=== PATIENT | female | born 1990 | race Caucasian/White ===

== ENCOUNTER 2021-12-02 10:08 | Day surgery (SDC) | payer OTHER ==
--- NOTE | 2021-12-02 08:54 | P.GSHP ---
History of Present Illness H&P Date: 12/02/21 CHIEF COMPLAINT: Ventral hernia HISTORY OF PRESENT ILLNESS: The patient is a 31-year-old female presents with a history of swelling and pain along the abdomen from a hernia of the abdomen. Symptoms have been present for over 6 months. Now she presents for surgical intervention. PAST MEDICAL HISTORY: Please see list. PAST SURGICAL HISTORY: Please see list. MEDICATIONS: Please see list. ALLERGIES: Please see list. SOCIAL HISTORY: No illicit drug use FAMILY HISTORY: No reports of Crohn disease or ulcerative colitis. REVIEW OF ORGAN SYSTEMS: CONSTITUTIONAL: No reports of fevers or chills. No reports of weight loss despite prior attempts. GI: Denies any blood in stools or constipation. PHYSICAL EXAM: VITAL SIGNS: Stable GENERAL: Well-developed pleasant male in no acute distress. HEENT: No scleral icterus. Extraocular movements grossly intact. Moist buccal mucosa. NECK: Supple without lymphadenopathy. CHEST: Unlabored respirations. Equal bilateral excursions. CARDIOVASCULAR: Regular rate and rhythm. Distal 2+ pulses. ABDOMEN: Soft, nondistended. Palpable defect of the abdomen. No peritoneal signs. MUSCULOSKELETAL: No clubbing, cyanosis, or edema. ASSESSMENT: 1. Ventral hernia PLAN: 1. Recommend proceeding with robotic ventral hernia repair with mesh. 2. Benefits and risks of surgical intervention was discussed including possibility of open technique. 3. DVT prophylaxis. 4. Antibiotic prophylaxis. 5. Non narcotic pain management including abdominal wall block described 6. Blood sugar glucose described. 7. Weight loss management described. Past Medical History Past Medical History: Seizure Disorder Additional Past Medical History / Comment(s): epilepsy-last seizure 09-12-21 after grandma , smokes marijuana for her epilepsy, says works better for her than anti-seizure meds History of Any Multi-Drug Resistant Organisms: None Reported Past Surgical History: Hernia Repair, Tubal Ligation Past Anesthesia/Blood Transfusion Reactions: No Reported Reaction Smoking Status: Former smoker Medications and Allergies Home Medications Medication Instructions Recorded Confirmed Type Multivitamins, Thera [Multivitamin 1 tab PO DAILY 11/29/21 11/29/21 History (formulary)] Sertraline [Zoloft] 50 mg PO DAILY 11/29/21 11/29/21 History Allergies Allergy/AdvReac Type Severity Reaction Status Date / Time No Known Allergies Allergy Verified 11/29/21 14:29
[~2021-12-02 10:08] MED LIST: ACETAMINOPHEN TAB 500 MG TAB PO PRN; DEXAMETHASONE SOD PHOSPHATE 4 MG/ML 1 ML VIAL IV ONE; FAMOTIDINE 20 MG TAB PO PRN; HEPARIN SODIUM,PORCINE/PF 5,000 UNIT/0.5 ML SYRINGE SQ PRN; LACTATED RINGERS 1,000 ML IV SCH; LIDOCAINE 1% (10MG/ML) FOR IV START INTRADERMA PRN; MELOXICAM 7.5 MG TAB PO PRN; METOCLOPRAMIDE 5 MG/ML 2 ML VIAL IVP PRN; ONDANSETRON 4 MG/2 ML VIAL IVP ONE; SCOPOLAMINE 1 MG/72 HR PATCH TRANSDERM ONE; SCOPOLAMINE 1 MG/72 HR PATCH TRANSDERM PRN
[2021-12-02 11:01] LABS: Basophils % (A) 0 %; Eosinophils # (A) 0.2 k/uL (0-0.7); Eosinophils % (A) 3 %; HCT 41.8 % (34.0-46.0); HGB 13.2 gm/dL (11.4-16.0); Lymphocytes # (A) 1.4 k/uL (1.0-4.8); Lymphocytes % (A) 27 %; MCH 28.2 pg (25.0-35.0); MCHC 31.7 g/dL (31.0-37.0); MCV 88.9 fL (80.0-100.0); Monocytes # (A) 0.4 k/uL (0-1.0); Monocytes % (A) 7 %; Neutrophils % (A) 60 %; Platelet Count 164 k/uL (150-450); RDW 13.6 % (11.5-15.5)
[2021-12-02 11:18] LABS: ALT 14 U/L (4-34); AST 29 U/L (14-36); African American GFR (CKD) >90 (>60 ml/min/1.73 sqM); Albumin 4.6 g/dL (3.5-5.0); Alkaline Phosphatase 57 U/L (38-126); Anion Gap 6 mmol/L; Blood Urea Nitrogen 11 mg/dL (7-17); Calcium 9.3 mg/dL (8.4-10.2); Carbon Dioxide 23 mmol/L (22-30); Chloride 111 mmol/L (98-107); Glucose 97 mg/dL (74-99); Non-African American GFR(CKD) >90 (>60 ml/min/1.73 sqM); Potassium 4.1 mmol/L (3.5-5.1); Sodium 140 mmol/L (137-145); Total Bilirubin 0.9 mg/dL (0.2-1.3); Total Protein 7.6 g/dL (6.3-8.2)
[2021-12-02] MEDS ORDERED: MIDAZOLAM 2 MG/2 ML VIAL IV ONE (11:39)
[2021-12-02] MEDS ORDERED: fentaNYL (PF) 50 MCG/ML 2 ML AMP IV ONE (11:39)
--- NOTE | 2021-12-02 12:12 | P.ANPRN ---
Procedure Note - Anesthesia - Nerve Block Performed Bilateral Rectus Abdominis Time Out Performed: Yes (11:39) Date of Procedure: 12/02/21 Procedure Start Time: :39 Procedure Stop Time: 11:49 Location of Patient: PreOp Indication: Acute Post-Operative Pain, Requested by Surgeon (Dr Cordon) Sedation Type: Sedate with meaningful contact maintained Preparation: Sterile Prep Position: Supine Catheter: None Needle Types: Pajunk Needle Gauge: 21 Ultrasound used to visualize needle placement: Yes Ultrasound used to observe medication spread: Yes Injectate: 0.5% Ropivacaine (see comment for volume) (15cc +10cc PF Normal saline each side) Blood Aspirated: No Pain Paresthesia on Injection Noted: No Resistance on Injection: Normal Image Stored and Saved: Yes Events: Uneventful and Well Tolerated
[2021-12-02] MEDS ORDERED: ROCURONIUM 10 MG/ML (5 ML VIAL) IV ONE (12:29)
[2021-12-02] MEDS ORDERED: LIDOCAINE 2% INJ 20 MG/ML (2 ML VIAL) ONE (12:29)
[2021-12-02] MEDS ORDERED: KETOROLAC 15 MG/ML 1 ML VIAL ONE (12:29)
[2021-12-02] MEDS ORDERED: PROPOFOL 10 MG/ML 20 ML VIAL IV ONE (12:29)
[2021-12-02] MEDS ORDERED: SODIUM CHLORIDE 0.9% (PF) 10 ML VIAL ONE (12:29)
[2021-12-02] MEDS ORDERED: BUPIVACAIN-EPI 0.25%-1:200,000 30 ML VIAL SQ ONE (12:29)
[2021-12-02] MEDS ORDERED: MIDAZOLAM 2 MG/2 ML VIAL ONE (12:29)
[2021-12-02] MEDS ORDERED: HYDROmorphone (PF) 1 MG/ML ONE (12:29)
[2021-12-02] MEDS ORDERED: ROPIVACAINE 5 MG/ML 30 ML VIAL ONE (12:29)
[2021-12-02] MEDS ORDERED: fentaNYL (PF) 50 MCG/ML 2 ML AMP ONE (12:29)
[2021-12-02] MEDS ORDERED: KETOROLAC 15 MG/ML 1 ML VIAL IVP PRN (14:27)
[2021-12-02] MEDS ORDERED: oxyCODONE-APAP 7.5-325MG 1 EACH TAB PO PRN (14:27)
--- NOTE | 2021-12-02 14:35 | P.OP ---
Date of Procedure: 12/02/21 Description of Procedure: SURGEON: LUCÍA DOYLE MD PREOPERATIVE DIAGNOSES: 1. Recurrent incisional ventral hernia POSTOPERATIVE DIAGNOSES: 1. Recurrent incisional ventral hernia, 3 x 2 cm, reducible 2. Peritoneal adhesions 3. Foreign body, mass OPERATION: 1. Robotic-assisted da Delia Xi laparoscopic repair of recurrent incisional reducible ventral hernia with mesh, ventralight ST mesh 11.4 cm 2. Robotic-assisted da Delia Xi laparoscopic lysis of adhesions 3. Excision/removal of foreign body, mesh Anesthesia: GETA, regional, local Estimated Blood Loss (ml): 5 Pathology: 1. Umbilical incisional hernia defect 2. Ventral hernia mesh COMPLICATIONS: None. Operative Findings: 1. Recurrent umbilical ventral hernia defect 3 x 2 cm 2. Prior mesh repair with failure at the inferior aspect and residual subcutaneous pocket 5 x 4 cm lower abdomen 3. Fascia repaired using #1 V-lock suture 4. Omental adhesions to prior hernia mesh repair lysed and removed INDICATIONS: The patient is a 31-year-old male who presents with a personal history of recurrent abdominal wall hernia. Surgical intervention with laparoscopic versus robotic and open techniques were reviewed. Placement of mesh was also reviewed. Benefits and risks were thoroughly described. Informed consent was obtained. DESCRIPTION OF PROCEDURE: The patient was brought into the operating room and laid in supine position. After general induction, the abdomen had been prepped and draped in standard sterile fashion. Ioban draping was also placed. Prior to incision, a timeout protocol was confirmed with surgical team regarding the patient's name including procedures to be performed. The robot was primed prior to the procedure. A field block using local anesthetic was placed along hernia site including the proposed port sites. Initial incision was made with an #11 blade along the left upper quadrant. A 0 degree 5 mm laparoscopic trocar entry was performed and insufflated. Three 8 mm ports were placed along the left lateral abdominal wall under direct localization after exchanging the 5-mm for an 8 mm port. Placements of the ports were 15 cm from the target anatomy and 10 cm apart. An accessory 12 mm port was placed at the left upper quadrant for exchange of mesh including sutures. The Guardlyi Xi robot was previously primed, prepped and draped then docked from the right side of the patient onto the left side of the patient. I then sat at the robot [employer] Xi console where working arms of the robot including Bovie cautery connected to robotic scissors, needle truck driver teamster, and graspers placed by the retail loan originator assistant. Omental with mesh adhesions were found at the prior umbilical hernia repair. Failure found along the inferior aspect. Mesh found was 3-4 cm circular mesh and explanted. New incisional hernia defect found of 3 x 2 cm with large subcutaneous pocket 5 x 4 cm inferiorly. Adhesions were sharply lysed using vessel sealer. The defect contents were reduced as the peritoneal fat was cleaned from the abdominal wall. Next, hemostasis was checked with cautery. The hernia defects were oversewn using #1 nonabsorbable V-lock suture for each defect separately with fascial imbrication x 2. Next, ventralight ST mesh 11.4 cm was placed with the rough side towards the abdominal wall as to cover the ventral defect. 2-0 VLOC 9 inch non-absorbable sutures were used to fixate the mesh. A final endoscopic imaging was obtained. All instruments and pneumoperitoneum were evacuated from the abdominal cavity. The da Delia Xi robot was undocked from the patient. I re-scrubbed into the case for closure of incisions. The fascia of the 12-mm port was closed using Juan Liang 0 Vicryl . The incisions were reapproximated using 4-0 Monocryl in an interrupted subcuticular fashion. Liquid glue was applied to the skin after cleansing the skin with normal saline and dilute hydrogen peroxide. An abdominal binder was placed. An umbilical dressing was placed prior. At the end of the procedure, needle, sponge, and instrument count had been verified correct by surgical instrument repair specialist. The patient was taken to the postanesthesia care unit in stable condition. Plan - Discharge Summary Discharge Rx Participant: No New Discharge Prescriptions: New Simethicone [Gas-X] 125 mg PO AC-TID PRN #20 capsule PRN Reason: Pain Ibuprofen [Motrin] 600 mg PO Q8HR PRN #30 tab PRN Reason: Pain Acetaminophen Tab [Tylenol Tab] 1,000 mg PO Q6HR PRN #30 tablet PRN Reason: Pain Continue Multivitamins, Thera [Multivitamin (formulary)] 1 tab PO DAILY Sertraline [Zoloft] 50 mg PO DAILY Discharge Medication List Multivitamins, Thera [Multivitamin (formulary)] 1 tab PO DAILY 11/29/21 [History] Sertraline [Zoloft] 50 mg PO DAILY 11/29/21 [History] Acetaminophen Tab [Tylenol Tab] 1,000 mg PO Q6HR PRN #30 tablet 12/02/21 [Rx] Ibuprofen [Motrin] 600 mg PO Q8HR PRN #30 tab 12/02/21 [Rx] Simethicone [Gas-X] 125 mg PO AC-TID PRN #20 capsule 12/02/21 [Rx] Follow up Appointment(s)/Referral(s): Lucía Doyle MD [STAFF PHYSICIAN] - 12/07/21 (Telehealth ) Patient Instructions/Handouts: Ventral Hernia Repair (GEN), *[facility] - Managing Your Pain After Surgery Without Opioids, Abdominal Binder (DC) Activity/Diet/Wound Care/Special Instructions: DO NOT REMOVE UMBILICAL DRESSING. Using antibacterial soap. No lifting over 4 pounds 4 weeks, Jan 02September shower. No bathtub soaks for 2 weeks, Dec 16 Wear abdominal binder daily for comfort except for showering. Use ice along incisions for today to prevent swelling. Take tylenol, aleve/ibuprofen, simethicone scheduled for 3 days for best pain relief Discharge Disposition: HOME SELF-CARE
[2021-12-02 14:36] VITALS: TEMP 98
[2021-12-02 14:44] VITALS: RESP 16
[2021-12-02] MEDS: HYDROmorphone 0.5 MG/0.5 ML SYRINGE IVP PRN ×2 (14:52→15:20)
[2021-12-02 16:42] VITALS: BP 138/80; PULSE 63
== END 2021-12-02 17:01 | disposition home or self-care (01) ==
LOC: OR 10:08
PROVIDERS: ATTEND Surgery Plastic and Reconstructive Surgery
DX: K43.2 Incisional hernia without obstruction or gangrene (principal); K66.0 Peritoneal adhesions (postprocedural) (postinfection); R19.00 Intra-abdominal and pelvic swelling, mass and lump, unspecified site; G40.909 Epilepsy, unspecified, not intractable, without status epilepticus; Z98.51 Tubal ligation status; Z98.890 Other specified postprocedural states; Z87.891 Personal history of nicotine dependence; Z79.899 Other long term (current) drug therapy
CPT/HCPCS: 49656; S2900; 64999; 80053; 81025; 85025; 88302